=== PATIENT | female | born 1970 | race African-American/Black ===

== ENCOUNTER 2020-08-27 05:38 | Observation (INO) | payer BC ==
[2020-08-27] MEDS ORDERED: Lidocaine 2% Jelly 5 ML TUBE ONE (06:40)
[2020-08-27] MEDS ORDERED: Fentanyl 100 MCG/2 ML VIAL ONE ×2 (06:40→10:45)
[2020-08-27] MEDS ORDERED: Lidocaine 1% w/Epinephrine 1:100K 20 ML VIAL ONE (06:58)
[2020-08-27] MEDS ORDERED: Bupivacaine 0.25% HCL 30 ML VIAL ONE (06:58)
[2020-08-27] MEDS ORDERED: Scopolamine 1.5 mg/72 hour Patch ONE (07:00)
[2020-08-27] MEDS ORDERED: Glycopyrrolate 0.2 MG/ML 5 ML SYRINGE ONE (07:34)
[2020-08-27] MEDS ORDERED: PHENYLEPHRINE-NS 100 MCG/ML 10 ML SYRINGE ONE (07:34)
[2020-08-27] MEDS ORDERED: Rocuronium Bromide 10 MG/ML (10ML VIAL) ONE (07:34)
[2020-08-27] MEDS ORDERED: Ketorolac Tromethamine 30 MG/ML VIAL ONE (07:34)
[2020-08-27] MEDS ORDERED: Ondansetron PF 4 MG/2 ML Vial ONE (07:34)
[2020-08-27] MEDS ORDERED: Dexamethasone 20 MG/5 ML VIAL ONE (07:34)
[2020-08-27] MEDS ORDERED: Succinylcholine 200 MG/10 ml SYRINGE FS ONE (07:34)
[2020-08-27] MEDS ORDERED: ePHEDrine Sulfate 50 MG/10 ML VIAL ONE (07:34)
[2020-08-27] MEDS ORDERED: PROPOFOL 200 MG/20 ML VIAL ONE (07:34)
[2020-08-27] MEDS ORDERED: Lidocaine 1% PF 5 ML VIAL ONE (07:34)
[2020-08-27] MEDS ORDERED: Ondansetron HCl/PF 4 MG/2 ML Vial IVP PRN (10:06)
[2020-08-27] MEDS ORDERED: Promethazine HCl 25 MG/ML VIAL SLOW IVP PRN (10:06)
[2020-08-27] MEDS ORDERED: Promethazine HCl 25 MG/ML VIAL IM PRN ×2 (10:06→11:59)
[2020-08-27] MEDS ORDERED: Promethazine HCl 25 MG/ML VIAL ONE (10:45)
[2020-08-27] MEDS ORDERED: Dextrose 5% in Water 1,000 ML IV PRN (11:59)
[2020-08-27] MEDS ORDERED: Ondansetron PF 4 MG/2 ML Vial IVP PRN (11:59)
[2020-08-27] MEDS ORDERED: hydrALAZINE 20 MG/ML VIAL SLOW IVP PRN (11:59)
[2020-08-27] MEDS ORDERED: Morphine 2 MG/ML VIAL SLOW IVP PRN (11:59)
[2020-08-27] MEDS ORDERED: Dextrose 50% Abboject 50 ML SYRINGE SLOW IVP PRN (11:59)
[2020-08-27] MEDS ORDERED: Gabapentin 100 MG CAP PO PRN (11:59)
[2020-08-27] MEDS ORDERED: Morphine 4 MG/ML VIAL SLOW IVP PRN (11:59)
[2020-08-27] MEDS: D5 1/2 NS w/20 mEq KCL 1,000 ML IV SCH (12:13)
[2020-08-27] MEDS: Hydrocodone-Acetamin 15 ML UDCUP PO PRN (18:20)
[2020-08-27] MEDS: Progesterone,Micronized 100 MG CAP PO SCH (19:52)
[2020-08-28] MEDS: D5 1/2 NS w/20 mEq KCL 1,000 ML IV SCH (02:20)
[2020-08-28] MEDS: Hydrocodone-Acetamin 15 ML UDCUP PO PRN ×4 (02:26→21:55)
[2020-08-28] MEDS: Estradiol 1 MG TAB PO SCH (08:32)
[2020-08-28] MEDS: Pantoprazole 40 MG VIAL IVP SCH (08:32)
[2020-08-28] MEDS ORDERED: Liraglutide [Saxenda] 3 MG/0.5 ML Pen.Injctr SC SCH (09:00)
[2020-08-28 09:49] LABS: Troponin I Less than 0.010 ng/mL (< 0.028)
[2020-08-28] MEDS: Progesterone,Micronized 100 MG CAP PO SCH (20:39)
[2020-08-29 04:33] VITALS: TEMP 98.1
[2020-08-29] MEDS: Hydrocodone-Acetamin 15 ML UDCUP PO PRN ×2 (04:38→10:17)
[2020-08-29] MEDS: Estradiol 1 MG TAB PO SCH (07:55)
[2020-08-29] MEDS: Pantoprazole 40 MG VIAL IVP SCH (07:55)
[2020-08-29 11:41] VITALS: BP 101/59
== END 2020-08-29 13:12 | disposition home or self-care (01) ==
LOC: SDC 05:38 → SURG A 10:06
PROVIDERS: ADMIT Surgery; ATTEND Surgery
PROC: 0DV44ZZ Restriction of Esophagogastric Junction, Percutaneous Endoscopic Approach (ICD-10-PCS; principal; 2020-08-27)
DX: K44.0 Diaphragmatic hernia with obstruction, without gangrene (principal); K66.0 Peritoneal adhesions (postprocedural) (postinfection); J45.909 Unspecified asthma, uncomplicated; D53.9 Nutritional anemia, unspecified; E88.81 Metabolic syndrome and other insulin resistance; J98.59 Other diseases of mediastinum, not elsewhere classified; R07.89 Other chest pain; Z79.899 Other long term (current) drug therapy; Z88.8 Allergy status to other drugs, medicaments and biological substances; Z98.84 Bariatric surgery status
CPT/HCPCS: 36415; 84484; 93005; 93010; 94640; 96374; 96375; 96376; C9113; G0378; J0690; J1100; J1885; J2270; J2405; J2550; J2704; J3010; J3480; J7620; S0020